=== PATIENT | male | born 2000 | race African-American/Black ===

== ENCOUNTER 2018-06-18 12:57 | Emergency (ER) | payer BC ==
[~2018-06-18] VITALS: Ht 182.9 cm; Wt 62.6 kg
[~2018-06-18 12:57] MED LIST: NO REPORTABLE MEDS
[2018-06-18] MEDS ORDERED: ALBUTEROL FS 2.5 MG/3 ML VIAL.NEB CONTNEB ONE (13:30)
[2018-06-18] MEDS ORDERED: DEXAMETHASONE SOD PHOSPHATE 10 MG/ML VIAL ONE (13:44)
[2018-06-18] MEDS ORDERED: IPRATROPIUM NEB FS 0.5 MG/2.5 ML AMPUL.NEB ONE (13:48)
[2018-06-18] MEDS ORDERED: ALBUTEROL FS 2.5 MG/3 ML VIAL.NEB ONE ×2 (13:48→14:15)
[2018-06-18] MEDS: IPRATROPIUM NEB FS 0.5 MG/2.5 ML AMPUL.NEB NEB ONE (13:55)
[2018-06-18] MEDS: ALBUTEROL FS 2.5 MG/3 ML VIAL.NEB CONTNEB ONE (13:55)
[2018-06-18] MEDS: DEXAMETHASONE SOD PHOSPHATE 4 MG/ML VIAL IM ONE (14:08)
--- NOTE | 2018-06-18 14:09 | NUR ---
PT MEDICATED & GETTING BREATHING TREATMENT. PT MIRNA WELL.
[2018-06-18] MEDS: ALBUTEROL FS 2.5 MG/3 ML VIAL.NEB NEB ONE (14:18)
[2018-06-18 14:50] VITALS: BP 126/75
== END 2018-06-18 15:04 | disposition home or self-care (01) ==
LOC: ER 12:57
DX: J45.901 Unspecified asthma with (acute) exacerbation (principal); Z91.010 Allergy to peanuts
CPT/HCPCS: 94640 ×2; 96372; 99285; J1100